=== PATIENT | male | born 1965 | race Two or more races ===

== ENCOUNTER 2020-10-23 09:04 | Outpatient (CLI) | payer OTHER | END 2020-10-23 09:29 | disposition home or self-care (01) | LOC: LAB 09:04 | DX: D50.8 Other iron deficiency anemias (principal); R79.9 Abnormal finding of blood chemistry, unspecified; I10 Essential (primary) hypertension; R74.02 Elevation of levels of lactic acid dehydrogenase [LDH]; K76.89 Other specified diseases of liver; D51.1 Vitamin B12 deficiency anemia due to selective vitamin B12 malabsorption with proteinuria; D51.0 Vitamin B12 deficiency anemia due to intrinsic factor deficiency; E03.8 Other specified hypothyroidism; E06.3 Autoimmune thyroiditis; R97.0 Elevated carcinoembryonic antigen [CEA]; R97.8 Other abnormal tumor markers; R97.20 Elevated prostate specific antigen [PSA]; E11.9 Type 2 diabetes mellitus without complications ==

== ENCOUNTER 2021-02-05 07:12 | Outpatient (CLI) | payer OTHER | END 2021-02-05 07:24 | disposition home or self-care (01) | LOC: LAB 07:12 | PROVIDERS: ATTEND Internal Medicine Hematology & Oncology | DX: R79.89 Other specified abnormal findings of blood chemistry (principal); D50.8 Other iron deficiency anemias; I10 Essential (primary) hypertension; R74.02 Elevation of levels of lactic acid dehydrogenase [LDH]; K76.89 Other specified diseases of liver; D63.8 Anemia in other chronic diseases classified elsewhere; D55.0 Anemia due to glucose-6-phosphate dehydrogenase [G6PD] deficiency; D63.1 Anemia in chronic kidney disease; E11.9 Type 2 diabetes mellitus without complications; G47.33 Obstructive sleep apnea (adult) (pediatric) ==